=== PATIENT | female | born 1960 | race Caucasian/White ===

== ENCOUNTER → 2025-03-06 10:51 | Outpatient (BNVA) | payer MEDICARE, SELFPAY | PROVIDERS: PCP Family Medicine; Referring Provider Family Medicine; Visit Provider Physical Therapy Assistant | DX: Z12.11 Encounter for screening for malignant neoplasm of colon (principal); Z86.0109 Personal history of other colon polyps; Z80.0 Family history of malignant neoplasm of digestive organs | CPT/HCPCS: S0285 ==

== ENCOUNTER 2025-03-17 08:22 | Day surgery (SDC) | payer MEDICARE, SELFPAY ==
--- NOTE | 2025-03-16 20:51 | W.PM.DSUDISC ---
Date of service: 03/17/25 Discharge Plan Disposition Patient Disposition: Home Condition: Good Discharge Details Reason For Visit: screening colonoscopy Attending Provider: Fitz Corado Primary Care Provider: Rory Camp Home Meds and New Rx's Prescriptions: Continued multivitamin Tablet 1 tab PO DAILY glucosamine HCl 500 mg tablet 500 mg PO DAILY Rx Instructions: administer with a meal loratadine [Alavert] 10 mg tablet,disintegrating 10 mg PO DAILY naproxen sodium [Aleve] 220 mg tablet 220 mg PO BID PRN biotin 300 mcg tablet 300 mcg PO DAILY levothyroxine 75 mcg capsule 75 mcg PO DAILY atorvastatin 20 mg tablet 20 mg PO DAILY Discontinued bisacodyl [Dulcolax (bisacodyl)] 5 mg tablet,delayed release (DR/EC) 5 mg PO ONCE Qty: 4 0RF Rx Instructions: Take per colonoscopy instructions provided by ordering providers office polyethylene glycol 3350 17 gram/dose powder 17 g PO ONCE Qty: 238 0RF Rx Instructions: Take per colonoscopy instructions provided by ordering providers office Discharge Instructions Instructions: Diverticulosis Additional Instructions: Oumou, it was a pleasure meeting you today, and I hope you are comfortable through the procedure. Everything went very smoothly. Your prep was excellent and I could see everything fine. I did not see any signs of tumors or polyps today. You do have diverticulosis. Diverticula are weak spots in the muscular layer of the colon all the cause inside lining to the pocket approach outwards a bit. These pockets are called diverticula, and the condition of having them is known as diverticulosis. Some patients experience flareups of inflammation that cause pain, usually on the left side or lower portion of the abdomen. We refer to these episodes as diverticulitis. Hopefully, ears do not bother you. I will attach some basic information here about typical approaches to diverticular management. Based on your family history, recommend another screening colonoscopy in 5-year intervals. If you need anything or have any questions, please do not hesitate to ask at any time. 1. If tolerated, consume a soft, low fiber diet for 1-2 days. 2[address] Do not drive, drink alcohol, operate machinery, make critical decisions, or do activities that require coordination or balance for 24 hours. 3. Because air was put into your colon during the procedure, expelling air from your rectum (passing gas or farting) is normal. 4. You may not have a bowel movement for 1-3 days because of the colonoscopy prep. This is normal. 5. Go directly to the emergency room if you notice any of the following: Develop chills (warm to touch), or if you have a thermometer and your temperature is above 101 Difficulty breathing or difficultly swallowing Persistent vomiting Severe abdominal pain, other than gas cramps Severe chest pain Black, tarry stools Any bleeding ? exceeding one tablespoon 6. Call your physician if the site where your intravenous was started becomes red, swollen, painful, and warm to touch. 7. Your physician has reviewed your pre-procedure medications. Please continue to take those medications as previously ordered. You will be given specific information/education regarding any changes to your medications before leaving. Activity:: Activity as Tolerated Diet:: As Tolerated Discharge Orders Discharge Orders: Discharge Order (Routine); Ordered 03/16/25 Ordered By: Fitz Corado DS: Diagnosis Discharge Diagnosis (1) Encounter for screening colonoscopy: Status: Acute Asessment and Plan: Negative screening colonoscopy; based on family history of colon cancer, recommend a 5-year screening interval
--- NOTE | 2025-03-16 20:52 | COLE_ITS ---
Date of service: 03/17/25 Time of Service: 10:45 Colonoscopy Report Date of procedure: 03/17/25 Pre-op diagnosis general: screening colonoscopy Post-op diagnosis procedure note: other (Diverticulosis) Procedure: colonoscopy Surgeon: Fitz Corado Anesthesia Type: General:No Airway Estimated blood loss (mL): 0 Pathology: none sent Complications: None Disposition: same day Indications: Oumou is a 64 year old woman who needs a screening colonoscopy Prep: Miralax/Dulcolax Procedure Start Time: 10:17 Procedure End Time: 10:34 Retraction Time: 7 Findings: Diverticulosis; otherwise negative screening colonoscopy Procedure Description: After the induction of anesthesia, and with the patient in left lateral decubitus position, I began by performing an external anorectal exam.? Perineum and skin were normal, as was the anal verge.? This was normal. Next, I performed a digital rectal exam.? I did not appreciate any abnormal findings.? Next, I advanced a colonoscope into the rectal vault.? I performed retroflexion.? There are internal hemorrhoids.? Using irrigation, I then advanced the colonoscope beyond the rectal folds and into the sigmoid colon before advancing towards the cecum. The scope was noted to be in the cecum by identification of the ileocecal valve and appendiceal orifice.? I then began withdrawing the colonoscope using repeated irrigation as necessary for full evaluation of the colonic mucosa. ?There is sigmoid diverticulosis. Once the scope was withdrawn to the level of the rectum, great care was taken to examine portions of the rectal folds.? Finally, the scope was withdrawn and the patient was brought to the same-day surgery recovery unit as the anesthetic wore off. ?The findings and instructions were shared with the patient prior to discharge. [place] Bowel Prep [place] Bowel Prep Right Colon: 3 Left Colon: 3 Transverse Colon: 3 Total Score: 9
[2025-03-17 08:40] VITALS: BP 136/77; PULSE 72; RESP 17; TEMP 36.7; O2SAT 98
[2025-03-17] MEDS: Lactated Ringers 1,000 ML 80 ML IV (08:56)
--- NOTE | 2025-03-17 09:51 | W.ANESPRE ---
General Info Date of Service Date Performed: 03/17/25 Height: 5 ft 3 in Weight: 99 kg Body Mass Index (BMI): 38.6 Surgical Procedure: Operation Date: 03/17/25 10:20 Proposed Procedure Side Surgeon p Charlotte Corado MD Meds Allergies and Home Medications Allergies Allergy/AdvReac Type Severity Reaction Status Date / Time No Known Allergies Allergy Verified 03/17/25 08:37 Home Medication ?Medication ?Instructions ?Recorded atorvastatin 20 mg tablet 20 mg PO DAILY 12/05/23 biotin 300 mcg tablet 300 mcg PO DAILY 12/05/23 glucosamine HCl 500 mg tablet 500 mg PO DAILY 12/05/23 levothyroxine 75 mcg capsule 75 mcg PO DAILY 12/05/23 loratadine 10 mg disintegrating 10 mg PO DAILY 12/05/23 tablet (Alavert) multivitamin 1 tab PO DAILY 12/05/23 naproxen sodium 220 mg tablet 220 mg PO BID PRN 12/05/23 (Aleve) Current Visit Medications: Current Medications Generic Name Dose Route Start Last Admin Trade Name Freq PRN Reason Stop Dose Admin Ringer's Solution 1,000 mls @ 80 mls/hr 03/17/25 06:00 03/17/25 08:56 IV 03/17/25 23:59 80 mls/hr INFUSION SAEED Administration IV Miscellaneous Supplies 1 each 03/17/25 06:00 Iv Access IV 03/17/25 23:59 DIRECTED SAEED Ondansetron HCl 4 mg 03/16/25 20:55 Ondansetron 4 Mg/2 Ml Vial IVP 04/15/25 20:54 Q4H PRN PRN Nausea / Vomiting Sodium Chloride 0 ml 03/17/25 06:00 Normal Saline Flush 10 Ml Syr IV 03/17/25 23:59 PRN PRN Sodium Chloride 0 ml 03/17/25 06:00 Normal Saline 10 Ml Vial IJ 03/17/25 23:59 DIRECTED PRN Sterile Water 0 ml 03/17/25 06:00 Water,Injection,Sterile 10 Ml Vial IJ 03/17/25 23:59 DIRECTED PRN PFSH Active Problems Active Problems: Problem Status Onset Code Encounter for screening colonoscopy Acute Z12.11 Cubital tunnel syndrome on right Acute G56.21 Right carpal tunnel syndrome Acute G56.01 Medical History Medical History H/O nephrolithotomy with removal of calculi Hypothyroidism CHOCO on CPAP Hypercholesterolemia Degenerative joint disease of low back Pilonidal cyst Surgical History Surgical History History of colonoscopy (~04/17/18) [place] internal external hemorrhoids, diminutive polyp Tobacco Smoking/Tobacco Use Status: Never Passive smoking exposure: No Alcohol Alcohol Intake: current Alcohol intake frequency: holidays/special occasions only Substance Use Substance use type: does not use Vital Signs and Lab Results Vital Signs Most Recent Vital Signs in EMR: Most Recent Vital Signs Temp Pulse Resp BP Pulse Ox 36.7 C 72 17 136/77 98 03/17/25 08:40 03/17/25 08:40 03/17/25 08:40 03/17/25 08:40 03/17/25 08:40 Anesthesia Assessment and Plan Anesthesia History Personal History: No History of Anesthesia Complications Family History: No Family History of Anesthesia Complications Exercise Tolerance Exercise Tolerance: Metabolic Equivalents>4 Pertinent Negatives Pertinent Negatives: No Symptoms of GERD Cardiac & Pulmonary Exam Cardiac Exam: Normal S1/S2 Heart Sounds Pulmonary Exam: Clear Bilateral Breath Sounds Implantable Cardiac Device Does patient have a Pacemaker or an ICD?: No Airway Exam Known Difficult Airway: No Mallampati Class: 2 Mouth Opening: Normal (> 3cm) Thyromental Distance: Less than 3 cm Neck Range of Motion: Full ROM Neck Circumference: Normal Teeth Condition: Normal Dentition ASA Classification ASA Score: ASA 2 Emergency Case?: No NPO Status NPO Status: NPO Clears >2 hours, Solids >8 hours Anesthesia Plan Resuscitation Status: Full Code Anesthesia Technique: General Anesthesia Airway Planned: Natural Airway Monitors Used: Standard Monitors
[2025-03-17 09:53] VITALS: BMI 38.6
[2025-03-17 10:41] VITALS: BP 109/71; PULSE 78; RESP 16; TEMP 36.4; O2SAT 96
[2025-03-17 11:00] VITALS: BP 126/78; PULSE 68; RESP 18; TEMP 36.3; O2SAT 100
--- NOTE | 2025-03-17 11:37 | W.ANESPOSTOP ---
Postoperative Evaluation Date, Time and Location Date Performed: 03/17/25 Time Performed: 11:37 Patient Location: Day Surgery Unit Vital Signs Most Recent Imported Vital Signs: Most Recent Vital Signs Temp Pulse Resp BP Pulse Ox 36.3 C L 68 18 126/78 100 03/17/25 11:00 03/17/25 11:00 03/17/25 11:00 03/17/25 11:00 03/17/25 11:00 Pain Score Most Recent Pain Score: Most Recent Pain Score Pain Level 0 03/17/25 11:00 Assessment Mental Status: Awake (Alert & Oriented to Patient Baseline) Airway and Respiratory Function: Patent airway with normal (patient baseline) respiratory exam Cardiovascular Function: Hemodynamically Stable Hydration Status: Adequately Hydrated Nausea & Vomiting: No Nausea or Vomiting Pain: Pt. Denies Any Pain Peripheral Nerve Block: Patient did not receive a nerve block
== END 2025-03-17 11:25 | disposition home or self-care (01) ==
LOC: SUR 08:22
PROVIDERS: PCP Family Medicine; Visit Provider Surgery
PROC: 0DJD8ZZ Inspection of Lower Intestinal Tract, Via Natural or Artificial Opening Endoscopic (ICD-10-PCS; CPT 45378; principal; 2025-03-17 10:15)
DX: Z12.11 Encounter for screening for malignant neoplasm of colon (principal); Z86.0100 Personal history of colon polyps, unspecified; Z80.0 Family history of malignant neoplasm of digestive organs; K57.30 Diverticulosis of large intestine without perforation or abscess without bleeding; K64.8 Other hemorrhoids
CPT/HCPCS: G0105; J2704